=== PATIENT | female | born 1960 | race Caucasian/White ===

== ENCOUNTER 2018-10-12 08:39 | Day surgery (SDC) | payer OTHER ==
[~2018-10-12 08:39] MED LIST: Lactated Ringers 1,000 ML IV SCH; Sodium Chloride 0.9% 10 ML Syringe FLUSH PRN
[2018-10-12] MEDS ORDERED: Lidocaine 2% 100 MG/5 ML Syringe IVPUSH ONE (08:40)
[2018-10-12] MEDS ORDERED: Propofol 200 MG/20 ML SDV IV ONE (08:40)
--- NOTE | 2018-10-12 10:41 | PCM.OPNOTE ---
- General Post-Op/Procedure Note Date of Surgery/Procedure: 10/12/18 Operative Procedure(s): egd with bx Findings: diffuse gastritis Pre Op Diagnosis: epigastric abd pain Post-Op Diagnosis: gastritis Anesthesia Technique: MAC Primary Surgeon: Roque Cano Anesthesia Provider: Vamsi Henning ([facility]) Pathology: diffuse gastrtis Complications: None Condition: Good Free Text/Narrative:: see dictation
--- NOTE | 2018-10-12 11:57 | OR ---
DATE OF OPERATION: 10/12/2018 SURGEON: Roque Cano MD PROCEDURE PERFORMED: EGD. PREOPERATIVE DIAGNOSIS: Epigastric abdominal pain. POSTOPERATIVE DIAGNOSIS: Gastritis. INDICATIONS FOR PROCEDURE: This is a 57-year-old white female who has had some issues with epigastric abdominal pain. She was offered and accepted an EGD as part of the workup. DESCRIPTION OF PROCEDURE: After an excellent IV sedation was administered, bite block was inserted and flexible endoscope was passed without difficulty down the patient's esophagus. Stomach was insufflated. The scope was passed through the pylorus, to the second portion of the duodenum and slowly withdrawn. The following findings were noted. The duodenum was unremarkable. The stomach demonstrated some diffuse gastritis and biopsies were taken. Distal esophagus was unremarkable. Stomach was deflated. Scope was removed. The patient tolerated the procedure well and was taken to Recovery. It should be noted that the patient was done in a reclined position because she has been having some neck issues and done at the patient's request. /[id number] HERNANDEZ/SHEREE
== END 2018-10-12 11:32 | disposition home or self-care (01) ==
LOC: FB.SDS 08:39
PROVIDERS: ATTEND Surgery
DX: K29.70 Gastritis, unspecified, without bleeding (principal); K21.9 Gastro-esophageal reflux disease without esophagitis; E11.9 Type 2 diabetes mellitus without complications; E78.00 Pure hypercholesterolemia, unspecified; E78.5 Hyperlipidemia, unspecified; I25.10 Atherosclerotic heart disease of native coronary artery without angina pectoris; G47.33 Obstructive sleep apnea (adult) (pediatric); F42.9 Obsessive-compulsive disorder, unspecified; J45.909 Unspecified asthma, uncomplicated; F41.8 Other specified anxiety disorders; M79.7 Fibromyalgia; Z79.4 Long term (current) use of insulin; Z79.899 Other long term (current) drug therapy
CPT/HCPCS: 00731; 43239; 82962; 88305; 88342; J2001; J2704; J7120

== ENCOUNTER 2020-08-09 21:31 | Emergency (ER) | payer OTHER ==
[2020-08-09] MEDS ORDERED: Sodium Chloride 0.9% 10 ML Syringe FLUSH PRN (21:32)
[2020-08-09] MEDS ORDERED: Insulin Lispro 100 Unit/ML 3 ML KwikPen SUBCUT STA (21:36)
[2020-08-09] MEDS ORDERED: Glucagon,Human Recombinant 1 MG Vial IM PRN (21:36)
[2020-08-09] MEDS ORDERED: 50% Dextrose in Water 50 ML Syringe IVPUSH PRN (21:36)
[2020-08-09] MEDS ORDERED: Ondansetron 4 MG/2 ML SDV IVPUSH STA ×2 (21:40→23:31)
[2020-08-09] MEDS ORDERED: Insulin Lispro 100 Unit/ML 3 ML KwikPen SUBCUT ONE (21:45)
[2020-08-09] MEDS ORDERED: Sodium Chloride 0.9% 1,000 ML IV SCH ×2 (21:45→22:30)
[2020-08-09] MEDS: Morphine 2 MG/ML SYRINGE IVPUSH STA (21:54)
[2020-08-09] MEDS ORDERED: fentaNYL 100 MCG/2 ML SDV IVPUSH STA ×2 (22:18→23:18)
[2020-08-09 22:20] LABS: BASE EXCESS VENOUS,POC -8 mmol/L (-2-3); HCO3 VENOUS,POC 17 mmol/L (21-29); PCO2 VENOUS,POC 28 mmHg (41-51)
[2020-08-09] MEDS ORDERED: Piperacillin/Tazobactam 4.5 GM in Sodium Chloride 0.9% 100 ML IV STA (22:30)
[2020-08-09] MEDS ORDERED: Heparin Sodium 5,000 Units/ML Vial IVPUSH ONE (22:55)
[2020-08-09] MEDS ORDERED: Nitroglycerin 2% Oint 1 GM UD Packet TOP STA (22:55)
[2020-08-09] MEDS ORDERED: Nitroglycerin 2% Oint 1 GM UD Packet ONE (22:56)
[2020-08-09] MEDS ORDERED: Heparin Sodium/0.45% NaCl 500 ML IV SCH (23:00)
--- NOTE | 2020-08-09 23:01 | EDM.PDOC ---
ED HPI GENERAL MEDICAL PROBLEM - General Chief Complaint: Diabetic Complaint Stated Complaint: Chest pain/abdominal pain Time Seen by Provider: 08/09/20 21:50 Source of Information: Reports: Patient History Limitations: Reports: No Limitations - History of Present Illness INITIAL COMMENTS - FREE TEXT/NARRATIVE: Patient is a 59 YO F who presented to the ED because of d izziness,lightheadedness, nausea which started 4 days ago.Thursday. She went to see her doctor on Thursday and told her that all her labs are abnormal and started her on insulin. Tonight at 7pm she had sudden onset of severe chest pain and abdominal pain. There is no associated fever,chills,cough or cold symptoms. - Related Data Allergies Allergy/AdvReac Type Severity Reaction Status Date / Time No Known Allergies Allergy Verified 10/12/18 08:56 Home Meds: Home Meds Acetaminophen with Codeine [Tylenol with Codeine #3 Tablet] 1 - 2 each PO Q6H PRN 06/23/18 [History] Aspirin [Halfprin] 81 mg PO DAILY 06/23/18 [History] Gabapentin [Neurontin] 300 mg PO DAILY 06/23/18 [History] Gabapentin [Neurontin] 600 mg 1400 06/23/18 [History] Gabapentin [Neurontin] 900 mg PO BEDTIME 06/23/18 [History] Insulin Aspart [NovoLOG] 4 - 10 unit SQ TIDMEALS 06/23/18 [History] Insulin Detemir [Levemir] 50 unit SQ BEDTIME 06/23/18 [History] Liraglutide [Victoza] 1.8 units SQ DAILY 06/23/18 [History] Multivitamin [Daily Saul] 1 tab PO DAILY 06/23/18 [History] Naproxen 500 mg PO BID 06/23/18 [History] Omeprazole 20 mg PO ACBREAKFAST 06/23/18 [History] PARoxetine HCl [Paxil] 40 mg PO BEDTIME 06/23/18 [History] Sucralfate [Carafate] 1 gm PO TID 06/23/18 [History] atorvaSTATin Calcium [Lipitor] 40 mg PO BEDTIME 06/23/18 [History] metFORMIN [Glucophage] 1,000 mg PO BIDMEALS 06/23/18 [History] Acetaminophen/HYDROcodone [Craig 325-5 MG] 1 - 2 tab PO BID PRN 10/11/18 [History] Albuterol Sulfate [Albuterol Sulfate Hfa] 2 puff INH Q4H PRN 10/11/18 [History] Budesonide/Formoterol [Symbicort 160-4.5 MCG] 1 puff INH BID 10/11/18 [History] Calcium Carb, Citrate/Vit D3 [Calcium + D3 ER Tablet] 1 each PO DAILY 10/11/18 [History] ClonazePAM [KlonoPIN] 0.5 mg PO BID PRN 10/11/18 [History] Oxybutynin 15 mg PO DAILY 10/11/18 [History] SUMAtriptan succinate [Imitrex] 100 mg PO ASDIRECTED PRN 10/11/18 [History] Past Medical History Cardiovascular History: Reports: Heart Murmur, High Cholesterol Respiratory History: Reports: Asthma Gastrointestinal History: Reports: GERD Genitourinary History: Reports: Renal Calculus, Other (See Below) Other Genitourinary History: overactive bladder SHIPPING MANAGER History: Reports: Other SHIPPING MANAGER History: [id number] Musculoskeletal History: Reports: Arthritis, Back Pain, Chronic, Fibromyalgia, Neck Pain, Chronic Neurological History: Reports: Migraines Psychiatric History: Reports: Anxiety, Depression, Panic Attack, Suicidal Ideation Endocrine/Metabolic History: Reports: Diabetes, Type II - Infectious Disease History Infectious Disease History: Reports: Chicken Pox - Past Surgical History Head Surgeries/Procedures: Reports: None HEENT Surgical History: Reports: Adenoidectomy, Myringotomy w Tube(s), Tonsillectomy GI Surgical History: Reports: Appendectomy, Cholecystectomy, Colonoscopy, EGD Female Surgical History: Reports: Section, Hysterectomy Other Female Surgeries/Procedures: CS x 1 Neurological Surgical History: Reports: C-Spine Social & Family History - Family History Family Medical History: No Pertinent Family History - Caffeine Use Caffeine Use: Reports: Soda ED ROS GENERAL - Review of Systems Review Of Systems: See Below Constitutional: Reports: No Symptoms HEENT: Reports: No Symptoms Respiratory: Reports: No Symptoms Cardiovascular: Reports: Chest Pain Endocrine: Reports: No Symptoms GI/Abdominal: Reports: Abdominal Pain, Nausea, Vomiting : Reports: No Symptoms Musculoskeletal: Reports: No Symptoms Skin: Reports: No Symptoms Neurological: Reports: No Symptoms Psychiatric: Reports: No Symptoms ED EXAM GENERAL NO PERIP PULSE - Physical Exam Exam: See Below Exam Limited By: No Limitations General Appearance: Alert, No Apparent Distress Eye Exam: Bilateral Eye: PERRL Ears: Normal External Exam, Normal Canal Nose: Normal Inspection, Normal Mucosa Throat/Mouth: Normal Inspection, Normal Lips, Normal Teeth Head: Atraumatic, Normocephalic Neck: Normal Inspection, Supple, Non-Tender, Full Range of Motion Respiratory/Chest: No Respiratory Distress, Lungs Clear, Normal Breath Sounds, No Accessory Muscle Use Cardiovascular: Normal Peripheral Pulses, Regular Rate, Rhythm, No Edema, No Gallop GI/Abdominal: Normal Bowel Sounds, Soft, Non-Tender, No Organomegaly, No Distent ion, No Abnormal Bruit, Other (diffusely tender) Back Exam: Normal Inspection, Full Range of Motion Extremities: Normal Inspection, Normal Range of Motion, Non-Tender Neurological: Alert, Oriented, CN II-XII Intact, Normal Cognition Course - Vital Signs Text/Narrative:: Labs/EKG/Chest and abdominal CT result was discussed with patient and her NS 1L bolus x3 Nitropaste Heparin 5000 U IV bolus Heparin drip @ 1000 U/hr Zosyn 4.5 gm IV x1 Fentanyl 50 mcg IV x 2 doses Code Status: Full Code Case discussed with Dr Burkett - Orders/Labs/Meds Orders: Active Orders 24 hr Category Date Time Status EKG Documentation Completion [RC] ASDIRECTED Care 08/09/20 21:33 Active Abdomen Pelvis wo Cont [CT] Stat Exams 08/09/20 22:12 Ordered Chest 1V Frontal [CR] Stat Exams 08/09/20 21:33 Stop Req Chest wo Cont [CT] Stat Exams 08/09/20 22:12 Ordered BETA-HYDROXYBUTYRATE Stat Lab 08/09/20 21:40 Received CORONAVIRUS COVID-19 ERNESTO [MOLEC] Stat Lab 08/09/20 21:40 Ordered D-DIMER QUANTITATIVE [COAG] Stat Lab 08/09/20 22:48 Ordered DRUG SCREEN, URINE ALERE [URCHEM] Stat Lab 08/09/20 22:16 Ordered UA W/MICROSCOPIC [URIN] Stat Lab 08/09/20 21:33 Ordered Dextrose 50% in Water Med 08/09/20 21:36 Active 50 ml IVPUSH ASDIRECTED PRN Glucagon,Human Recombinant [GlucaGen] Med 08/09/20 21:36 Active 1 mg IM ASDIRECTED PRN Heparin 25,000 Units @ 20MLS/HR Med 08/09/20 23:00 Ordered Heparin Sodium/0.45% NaCl [Heparin 25,000 Units in 1/2 NS 500 ML] 500 ml IV ASDIRECTED Sodium Chloride 0.9% [Normal Saline] 1,000 ml Med 08/09/20 21:45 Active IV ASDIRECTED Sodium Chloride 0.9% [Normal Saline] 1,000 ml Med 08/09/20 22:30 Active IV ASDIRECTED Sodium Chloride 0.9% [Saline Flush] Med 08/09/20 21:32 Active 10 ml FLUSH ASDIRECTED PRN Saline Lock Insert [OM.PC] Routine Oth 08/09/20 21:32 Ordered EKG 12 Lead [EK] Routine Ther 08/09/20 21:32 Ordered Medication Orders Dextrose/Water (50% Dextrose In Water 50 Ml Syringe) 50 ml IVPUSH ASDIRECTED PRN PRN Reason: Hypoglycemia Fentanyl (Fentanyl 100 Mcg/2 Ml Sdv) 50 mcg IVPUSH NOW STA Stop: 08/09/20 23:19 Glucagon (Glucagon,Human Recombinant 1 Mg Vial) 1 mg IM ASDIRECTED PRN PRN Reason: Hypoglycemia Sodium Chloride (Normal Saline) 1,000 mls @ 999 mls/hr IV ASDIRECTED [facility] Last Admin: 08/09/20 21:48 Dose: 999 mls/hr Documented by: FE Sodium Chloride (Normal Saline) 1,000 mls @ 999 mls/hr IV ASDIRECTED [facility] Heparin Sodium/Sodium Chloride (Heparin 25,000 Units In 1/2 Ns 500 Ml) 500 mls @ 16.368 mls/hr IV ASDIRECTED [facility] Last Admin: 08/09/20 23:18 Dose: 12 unit/kg/hr, 16.368 mls/hr Documented by: Sodium Chloride (Sodium Chloride 0.9% 10 Ml Syringe) 10 ml FLUSH ASDIRECTED PRN PRN Reason: Keep Vein Open Labs: Laboratory Tests 08/09/20 08/09/20 08/09/20 Range/Units 21:40 21:40 21:40 WBC 15.0 H (3.0-10.3) x10-3/uL RBC 4.20 (3.60-5.20) x10(6)uL Hgb 11.2 L (11.4-15.5) g/dL Hct 36.1 (34.2-48.2) % MCV 86.1 (76.7-100.5) fL MCH 26.7 (23.9-33.9) pg MCHC 31.1 L (31.9-34.8) g/dL RDW 13.6 (12.3-16.5) % Plt Count 354 (151-488) x10(3)uL MPV 9.5 (7.1-12.4) fL Add Manual Diff Yes Neutrophils % (Manual) 75 (46-82) % Band Neutrophils % 4 (0-6) % Lymphocytes % (Manual) 15 (13-37) % Monocytes % (Manual) 5 (4-12) % Eosinophils % (Manual) 1 (0-5) % POC VBG pH (7.32-7.43) pH Units POC VBG pCO2 (41-51) mmHg POC VBG HCO3 (21-29) mmol/L VBG Base Excess (-2-3) mmol/L O2 Delivery Device Sodium 135 (135-145) mmol/L Potassium 3.1 L (3.5-5.3) mmol/L Chloride 97 L (100-110) mmol/L Carbon Dioxide 21 (21-32) mmol/L BUN 47 H D (7-18) mg/dL Creatinine 2.0 H* (0.55-1.02) mg/dL Est Cr Clr Drug Dosing TNP Estimated GFR (MDRD) 26 L (>60) BUN/Creatinine Ratio 23.5 H (9-20) Glucose 565 H* D (80-116) mg/dL Lactic Acid (0.4-2.0) mmol/L Calcium 8.4 L (8.6-10.2) mg/dL Total Bilirubin 1.2 (0.1-1.3) mg/dL AST 46 H (5-25) IU/L ALT 41 H (12-36) U/L Alkaline Phosphatase 121 H (56-112) IU/L Troponin I 6483.2 H* (4.0-60.3) pg/mL Total Protein 6.5 (6.0-8.0) g/dL Albumin 2.2 L (3.5-5.2) g/dL Globulin 4.3 g/dL Albumin/Globulin Ratio 0.5 Amylase (25-115) U/L Lipase (73-393) U/L 08/09/20 08/09/20 08/09/20 Range/Units 21:40 21:40 21:40 WBC (3.0-10.3) x10-3/uL RBC (3.60-5.20) x10(6)uL Hgb (11.4-15.5) g/dL Hct (34.2-48.2) % MCV (76.7-100.5) fL MCH (23.9-33.9) pg MCHC (31.9-34.8) g/dL RDW (12.3-16.5) % Plt Count (151-488) x10(3)uL MPV (7.1-12.4) fL Add Manual Diff Neutrophils % (Manual) (46-82) % Band Neutrophils % (0-6) % Lymphocytes % (Manual) (13-37) % Monocytes % (Manual) (4-12) % Eosinophils % (Manual) (0-5) % POC VBG pH (7.32-7.43) pH Units POC VBG pCO2 (41-51) mmHg POC VBG HCO3 (21-29) mmol/L VBG Base Excess (-2-3) mmol/L O2 Delivery Device Sodium (135-145) mmol/L Potassium (3.5-5.3) mmol/L Chloride (100-110) mmol/L Carbon Dioxide (21-32) mmol/L BUN (7-18) mg/dL Creatinine (0.55-1.02) mg/dL Est Cr Clr Drug Dosing Estimated GFR (MDRD) (>60) BUN/Creatinine Ratio (9-20) Glucose (80-116) mg/dL Lactic Acid 6.5 H* (0.4-2.0) mmol/L Calcium (8.6-10.2) mg/dL Total Bilirubin (0.1-1.3) mg/dL AST (5-25) IU/L ALT (12-36) U/L Alkaline Phosphatase (56-112) IU/L Troponin I (4.0-60.3) pg/mL Total Protein (6.0-8.0) g/dL Albumin (3.5-5.2) g/dL Globulin g/dL Albumin/Globulin Ratio Amylase 37 (25-115) U/L Lipase 158 (73-393) U/L // Range/Units 21:40 WBC (3.0-10.3) x10-3/uL RBC (3.60-5.20) x10(6)uL Hgb (11.4-15.5) g/dL Hct (34.2-48.2) % MCV (76.7-100.5) fL MCH (23.9-33.9) pg MCHC (31.9-34.8) g/dL RDW (12.3-16.5) % Plt Count (151-488) x10(3)uL MPV (7.1-12.4) fL Add Manual Diff Neutrophils % (Manual) (46-82) % Band Neutrophils % (0-6) % Lymphocytes % (Manual) (13-37) % Monocytes % (Manual) (4-12) % Eosinophils % (Manual) (0-5) % POC VBG pH 7.40 (7.32-7.43) pH Units POC VBG pCO2 28 L (41-51) mmHg POC VBG HCO3 17 L (21-29) mmol/L VBG Base Excess -8 L (-2-3) mmol/L O2 Delivery Device Room air Sodium (135-145) mmol/L Potassium (3.5-5.3) mmol/L Chloride (100-110) mmol/L Carbon Dioxide (21-32) mmol/L BUN (7-18) mg/dL Creatinine (0.55-1.02) mg/dL Est Cr Clr Drug Dosing Estimated GFR (MDRD) (>60) BUN/Creatinine Ratio (9-20) Glucose (80-116) mg/dL Lactic Acid (0.4-2.0) mmol/L Calcium (8.6-10.2) mg/dL Total Bilirubin (0.1-1.3) mg/dL AST (5-25) IU/L ALT (12-36) U/L Alkaline Phosphatase (56-112) IU/L Troponin I (4.0-60.3) pg/mL Total Protein (6.0-8.0) g/dL Albumin (3.5-5.2) g/dL Globulin g/dL Albumin/Globulin Ratio Amylase (25-115) U/L Lipase (73-393) U/L Meds: Medications Generic Name Dose Route Start Last Admin Trade Name Sofia PRN Reason Stop Dose Admin Dextrose/Water 50 ml 08/09/20 21:36 50% Dextrose In Water 50 Ml Syringe IVPUSH ASDIRECTED PRN Hypoglycemia Fentanyl 50 mcg 08/09/20 23:18 Fentanyl 100 Mcg/2 Ml Sdv IVPUSH 08/09/20 23:19 NOW STA Glucagon 1 mg 08/09/20 21:36 Glucagon,Human Recombinant 1 Mg Vial IM ASDIRECTED PRN Hypoglycemia Sodium Chloride 1,000 mls @ 999 mls/hr 08/09/20 21:45 08/09/20 21:48 Normal Saline IV 999 mls/hr ASDIRECTED [facility] Administration Sodium Chloride 1,000 mls @ 999 mls/hr 08/09/20 22:30 Normal Saline IV ASDIRECTED [facility] Heparin Sodium/Sodium Chloride 500 mls @ 16.368 mls/hr 08/09/20 23:00 08/09/20 23:18 Heparin 25,000 Units In 1/2 Ns 500 Ml IV 12 unit/kg/hr ASDIRECTED [facility] 16.368 mls/hr Administration 12 UNIT/KG/HR Sodium Chloride 10 ml 08/09/20 21:32 Sodium Chloride 0.9% 10 Ml Syringe FLUSH ASDIRECTED PRN Keep Vein Open Discontinued Medications Generic Name Dose Route Start Last Admin Trade Name Sofia PRN Reason Stop Dose Admin Fentanyl 50 mcg 08/09/20 22:18 08/09/20 22:22 Fentanyl 100 Mcg/2 Ml Sdv IVPUSH 08/09/20 22:19 50 mcg NOW STA Administration Heparin Sodium (Porcine) 5,000 units 08/09/20 22:55 08/09/20 23:10 Heparin Sodium 5,000 Units/Ml Vial IVPUSH 08/09/20 22:56 5,000 units ONETIME ONE Administration Piperacillin Sod/Tazobactam 100 mls @ 200 mls/hr 08/09/20 22:30 08/09/20 22:51 Sod 4.5 gm/ Sodium Chloride IV 08/09/20 22:59 200 mls/hr NOW STA Administration Insulin Human Lispro 20 unit 08/09/20 21:36 08/09/20 21:46 Insulin Lispro 100 Unit/Ml 3 Ml Kwikpen SUBCUT 08/09/20 21:37 20 units NOW STA Administration Morphine Sulfate 2 mg 08/09/20 21:50 08/09/20 21:54 Morphine 2 Mg/Ml Syringe IVPUSH 08/09/20 21:51 2 mg NOW STA Administration Nitroglycerin 1 gm 08/09/20 22:55 08/09/20 23:00 Nitroglycerin 2% Oint 1 Gm Ud Packet TOP 08/09/20 22:56 1 gm NOW STA Administration Nitroglycerin Confirm 08/09/20 22:56 Nitroglycerin 2% Oint 1 Gm Ud Packet Administered 08/09/20 22:57 Dose 1 gm .ROUTE .STK-MED ONE Ondansetron HCl 4 mg 08/09/20 21:40 08/09/20 21:48 Ondansetron 4 Mg/2 Ml Sdv IVPUSH 08/09/20 21:41 4 mg NOW STA Administration Departure - Departure Time of Disposition: 23:00 Disposition: DC/Tfer to Acute Hospital 02 Condition: Fair Clinical Impression: Acute [facility], Hypotension, Sepsis, CKD (chronic kidney disease), Hypokalemia, DKA (diabetic ketoacidoses) - Discharge Information Referrals: PCP,None [Primary Care Provider] - Forms: ED Department Discharge - My Orders Last 24 Hours: My Active Orders 08/09/20 21:32 Sodium Chloride 0.9% [Saline Flush] 10 ml FLUSH ASDIRECTED PRN Saline Lock Insert [OM.PC] Routine EKG 12 Lead [EK] Routine 08/09/20 21:33 EKG Documentation Completion [RC] ASDIRECTED Chest 1V Frontal [CR] Stat UA W/MICROSCOPIC [URIN] Stat 08/09/20 21:36 Dextrose 50% in Water 50 ml IVPUSH ASDIRECTED PRN Glucagon,Human Recombinant [GlucaGen] 1 mg IM ASDIRECTED PRN 08/09/20 21:40 BETA-HYDROXYBUTYRATE Stat CORONAVIRUS COVID-19 ERNESTO [MOLEC] Stat 08/09/20 21:45 Sodium Chloride 0.9% [Normal Saline] 1,000 ml IV ASDIRECTED 08/09/20 22:12 Abdomen Pelvis wo Cont [CT] Stat Chest wo Cont [CT] Stat 08/09/20 22:16 DRUG SCREEN, URINE ALERE [URCHEM] Stat 08/09/20 22:30 Sodium Chloride 0.9% [Normal Saline] 1,000 ml IV ASDIRECTED 08/09/20 22:48 D-DIMER QUANTITATIVE [COAG] Stat 08/09/20 23:00 Heparin 25,000 Units @ 20MLS/HR Heparin Sodium/0.45% NaCl [Heparin 25,000 Units in 1/2 NS 500 ML] 500 ml IV ASDIRECTED - Assessment/Plan Last 24 Hours: My Active Orders 08/09/20 21:32 Sodium Chloride 0.9% [Saline Flush] 10 ml FLUSH ASDIRECTED PRN Saline Lock Insert [OM.PC] Routine EKG 12 Lead [EK] Routine 08/09/20 21:33 EKG Documentation Completion [RC] ASDIRECTED Chest 1V Frontal [CR] Stat UA W/MICROSCOPIC [URIN] Stat 08/09/20 21:36 Dextrose 50% in Water 50 ml IVPUSH ASDIRECTED PRN Glucagon,Human Recombinant [GlucaGen] 1 mg IM ASDIRECTED PRN 08/09/20 21:40 BETA-HYDROXYBUTYRATE Stat CORONAVIRUS COVID-19 ERNESTO [MOLEC] Stat 08/09/20 21:45 Sodium Chloride 0.9% [Normal Saline] 1,000 ml IV ASDIRECTED 08/09/20 22:12 Abdomen Pelvis wo Cont [CT] Stat Chest wo Cont [CT] Stat 08/09/20 22:16 DRUG SCREEN, URINE ALERE [URCHEM] Stat 08/09/20 22:30 Sodium Chloride 0.9% [Normal Saline] 1,000 ml IV ASDIRECTED 08/09/20 22:48 D-DIMER QUANTITATIVE [COAG] Stat 08/09/20 23:00 Heparin 25,000 Units @ 20MLS/HR Heparin Sodium/0.45% NaCl [Heparin 25,000 Units in 1/2 NS 500 ML] 500 ml IV ASDIRECTED
[2020-08-09] MEDS ORDERED: Ondansetron 4 MG/2 ML SDV ONE (23:32)
[2020-08-09] MEDS ORDERED: Clopidogrel 75 MG Tab PO ONE (23:39)
[2020-08-09] MEDS ORDERED: Aspirin 81 MG Tab.Chew PO ONE (23:40)
[2020-08-10] MEDS: Morphine 2 MG/ML SYRINGE IVPUSH STA (00:01)
--- NOTE | 2020-08-14 13:06 | PCM.EKG ---
#1 Interpretation EKG Date: 08/09/20 Time: 22:02 Rhythm: Other (sinus tach) Rate (Beats/Min): 100 [place]: Normal P-Wave: Present QRS: Wide ST-T: Other (non specific) Comparison: No Change EKG Interpretation Comments: Sinus Tach with Non-specific ST changes
== END 2020-08-10 ==
LOC: FB.ED 21:31
DX: A41.9 Sepsis, unspecified organism (principal); I21.9 Acute myocardial infarction, unspecified; I95.9 Hypotension, unspecified; E11.22 Type 2 diabetes mellitus with diabetic chronic kidney disease; N18.9 Chronic kidney disease, unspecified; E87.6 Hypokalemia; E78.00 Pure hypercholesterolemia, unspecified; J45.909 Unspecified asthma, uncomplicated; K21.9 Gastro-esophageal reflux disease without esophagitis; M19.90 Unspecified osteoarthritis, unspecified site; Z79.82 Long term (current) use of aspirin; Z79.4 Long term (current) use of insulin; Z79.899 Other long term (current) drug therapy
CPT/HCPCS: 36415; 51702; 71250; 74176; 80053; 80305; 81001; 82010; 82150; 82962; 83605; 83690; 84484; 85025; 85379; 93005; 96365; 96375; 99284; 99285; A9270; J1644; J1815; J2405; J2543; J3010; J7030; J2270